=== PATIENT | female | born 1950 | race Caucasian/White ===

== ENCOUNTER 2018-11-18 15:46 | Inpatient (IN) | payer OTHER ==
[~2018-11-18] VITALS: Ht 157.5 cm; Wt 98.9 kg
[2018-11-18 16:12] VITALS: Ht 157.5 cm; Wt 98.9 kg
[2018-11-18 17:18] LABS: BASOPHIL % 0.3 % (0-2); PLATELET COUNT 388 x10^3mcL (130-400)
[2018-11-18 17:19] LABS: RED CELL DISTRIBUTION WIDTH 18.8 % (11.5-14.5)
[2018-11-18 17:30] LABS: CALCIUM 8.7 mg/dL (8.5-10.1); CARBON DIOXIDE 29.8 mmol/L (21-32); CHLORIDE SERUM 105 mmol/L (98-107); CREATININE SERUM 0.8 mg/dL (0.6-1.0); GFR1 > 60 mL/min; GLUCOSE SERUM 114 mg/dL (74-106); POTASSIUM SERUM 4.4 mmol/L (3.5-5.1); SODIUM SERUM 142 mmol/L (136-145)
[2018-11-18 17:35] LABS: ALKALINE PHOSPHATASE 77 U/L (46-116); ALT/SGPT 15 U/L (14-59); AST/SGOT 16 U/L (15-37); BILIRUBIN TOTAL 0.24 mg/dL (0.20-1.00); TOTAL PROTEIN, SERUM 7.4 g/dL (6.4-8.2)
[2018-11-18 17:41] LABS: ALBUMIN 3.2 g/dL (3.4-5.0)
[2018-11-18] MEDS ORDERED: BENAZEPRIL HYDR20 M1 PO (20:54)
[2018-11-18] MEDS ORDERED: GOOD SENSE OMEP20 MG PO (20:55)
[2018-11-18] MEDS ORDERED: LISINOPRIL2.5 MG PO (20:55)
[2018-11-18 22:27] VITALS: BP 151/69
[2018-11-19 00:06] VITALS: BP 151/69
[2018-11-19 05:27] VITALS: BP 137/80
[2018-11-19 06:59] LABS: BASOPHIL % 0.6 % (0-2); PLATELET COUNT 353 x10^3mcL (130-400)
[2018-11-19 07:10] LABS: CALCIUM 8.7 mg/dL (8.5-10.1); CARBON DIOXIDE 27.4 mmol/L (21-32); CHLORIDE SERUM 105 mmol/L (98-107); CREATININE SERUM 0.8 mg/dL (0.6-1.0); GFR1 > 60 mL/min; GLUCOSE SERUM 118 mg/dL (74-106); POTASSIUM SERUM 3.6 mmol/L (3.5-5.1); RED CELL DISTRIBUTION WIDTH 17.9 % (11.5-14.5); SODIUM SERUM 141 mmol/L (136-145)
[2018-11-19 08:55] VITALS: BP 138/70
[2018-11-19 12:22] VITALS: BP 138/77
[2018-11-19 16:39] VITALS: BP 120/60
[2018-11-19 20:55] VITALS: BP 133/55
[2018-11-20 05:17] VITALS: BP 114/67
[2018-11-20 07:50] LABS: BASOPHIL % 0.7 % (0-2); PLATELET COUNT 329 x10^3mcL (130-400)
[2018-11-20 08:31] VITALS: BP 122/54
[2018-11-20] MEDS ORDERED: ELIQUIS5 M1 PO (09:21)
[2018-11-20] MEDS ORDERED: FERROUS SULFAT325 M2 PO (09:22)
[2018-11-20 12:45] VITALS: BP 112/56
[2018-11-20 13:12] VITALS: BP 112/56
[2018-11-20 20:58] VITALS: BP 119/64
[2018-11-21 05:23] VITALS: BP 131/65
[2018-11-21 06:08] LABS: BASOPHIL % 0.9 % (0-2); PLATELET COUNT 366 x10^3mcL (130-400)
[2018-11-21 06:34] LABS: CALCIUM 8.9 mg/dL (8.5-10.1); CARBON DIOXIDE 31.2 mmol/L (21-32); CHLORIDE SERUM 106 mmol/L (98-107); CREATININE SERUM 0.8 mg/dL (0.6-1.0); GFR1 > 60 mL/min; GLUCOSE SERUM 108 mg/dL (74-106); POTASSIUM SERUM 4.4 mmol/L (3.5-5.1); SODIUM SERUM 143 mmol/L (136-145)
[2018-11-21 08:24] VITALS: BP 128/73
[2018-11-21] MEDS ORDERED: PROTONIX40 MG PO (10:11)
[2018-11-21 12:30] VITALS: BP 116/57
[2018-11-21 16:36] VITALS: BP 116/57
== END 2018-11-21 18:44 | disposition home or self-care (01) | DRG 175 ==
LOC: ED 15:46 → DU 20:28
PROVIDERS: Emergency Medicine; Internal Medicine; Internal Medicine Nephrology; ADMIT Internal Medicine Pulmonary Disease
PROC: 0DJ08ZZ Inspection of Upper Intestinal Tract, Via Natural or Artificial Opening Endoscopic (ICD-10-PCS; principal; 2018-11-21 09:30)
DX: I26.99 Other pulmonary embolism without acute cor pulmonale (principal); K29.71 Gastritis, unspecified, with bleeding; I10 Essential (primary) hypertension; D50.9 Iron deficiency anemia, unspecified; K76.0 Fatty (change of) liver, not elsewhere classified; K21.9 Gastro-esophageal reflux disease without esophagitis; E78.00 Pure hypercholesterolemia, unspecified; E66.9 Obesity, unspecified; K22.70 Barrett's esophagus without dysplasia; K44.9 Diaphragmatic hernia without obstruction or gangrene; K31.7 Polyp of stomach and duodenum; Z90.49 Acquired absence of other specified parts of digestive tract
CPT/HCPCS: 43235; 83880; 85378; J1200; J1610; J1650; J2250; J2310; J2916; J3010; J3490; Q0092; Q9967

== ENCOUNTER 2018-11-23 19:17 | Emergency (ER) | payer OTHER ==
[~2018-11-23] VITALS: Ht 157.5 cm; Wt 93.4 kg
[~2018-11-23 19:17] MED LIST: BENAZEPRIL HYDR20 M1 PO; ELIQUIS5 M1 PO; FERROUS SULFAT325 M2 PO; GOOD SENSE OMEP20 MG PO; LISINOPRIL2.5 MG PO; PROTONIX40 MG PO
[2018-11-23 19:59] VITALS: Ht 157.5 cm; Wt 93.4 kg
[2018-11-23 21:40] VITALS: BP 152/71
== END 2018-11-23 21:40 | disposition home or self-care (01) ==
LOC: ED 19:17
DX: L03.114 Cellulitis of left upper limb (principal); I10 Essential (primary) hypertension; E78.00 Pure hypercholesterolemia, unspecified; M54.30 Sciatica, unspecified side; Z90.49 Acquired absence of other specified parts of digestive tract
CPT/HCPCS: J0696

== ENCOUNTER 2018-11-28 08:14 | Emergency (ER) | payer OTHER ==
[~2018-11-28] VITALS: Ht 157.5 cm; Wt 91.6 kg
[2018-11-28 08:22] VITALS: Ht 157.5 cm; Wt 91.6 kg
[2018-11-28 11:48] VITALS: BP 137/69
== END 2018-11-28 11:48 | disposition home or self-care (01) ==
LOC: ED 08:14
DX: I82.402 Acute embolism and thrombosis of unspecified deep veins of left lower extremity (principal); I10 Essential (primary) hypertension; E78.00 Pure hypercholesterolemia, unspecified; Z90.49 Acquired absence of other specified parts of digestive tract
CPT/HCPCS: J1650; Q0092

== ENCOUNTER 2019-03-11 01:19 | Emergency (ER) | payer OTHER ==
[~2019-03-11] VITALS: Ht 160 cm; Wt 86.8 kg
[2019-03-11 01:24] VITALS: Ht 160 cm; Wt 86.8 kg
[2019-03-11 02:06] LABS: CALCIUM 9.5 mg/dL (8.5-10.1); CARBON DIOXIDE 29.6 mmol/L (21-32); CHLORIDE SERUM 105 mmol/L (98-107); CREATININE SERUM 0.9 mg/dL (0.6-1.0); GFR1 > 60 mL/min; GLUCOSE SERUM 108 mg/dL (74-106); POTASSIUM SERUM 4.1 mmol/L (3.5-5.1); SODIUM SERUM 141 mmol/L (136-145)
[2019-03-11 02:27] LABS: BASOPHIL % 0.7 % (0-2); PLATELET COUNT 289 x10^3mcL (130-400)
[2019-03-11 04:05] VITALS: BP 129/81
== END 2019-03-11 04:05 | disposition home or self-care (01) ==
LOC: ED 01:19
PROVIDERS: Emergency Medicine
DX: I82.4Z2 Acute embolism and thrombosis of unspecified deep veins of left distal lower extremity (principal); I10 Essential (primary) hypertension; E78.00 Pure hypercholesterolemia, unspecified; Z90.49 Acquired absence of other specified parts of digestive tract
CPT/HCPCS: 36415; Q0092

== ENCOUNTER 2019-11-15 15:19 | Emergency (ER) | payer OTHER ==
[~2019-11-15] VITALS: Ht 160 cm; Wt 78.5 kg
[2019-11-15 15:21] VITALS: Ht 160 cm; Wt 78.5 kg
[2019-11-15 17:41] VITALS: BP 141/74
== END 2019-11-15 17:41 | disposition home or self-care (01) ==
LOC: ED 15:19
DX: S86.911A Strain of unspecified muscle(s) and tendon(s) at lower leg level, right leg, initial encounter (principal); I10 Essential (primary) hypertension; E78.00 Pure hypercholesterolemia, unspecified; Z90.49 Acquired absence of other specified parts of digestive tract; X58.XXXA Exposure to other specified factors, initial encounter; Y93.89 Activity, other specified; Y92.810 Car as the place of occurrence of the external cause; Y99.8 Other external cause status
CPT/HCPCS: Q0092